=== PATIENT | male | born 1960 | race Caucasian/White ===

== ENCOUNTER 2019-02-19 10:43 | Observation (INO) | payer SELFPAY ==
[~2019-02-19] VITALS: Ht 165.1 cm; Wt 94.1 kg
[2019-02-19] MEDS ORDERED: HYDR12CA PO ×2 (11:16→23:19)
[2019-02-19 12:19] LABS: BASO % 0.5 % (0.0-1.0); EOS % 0.7 % (0.0-3.0); HEMATOCRIT 50.4 % (42.0-52.0); HEMOGLOBIN 17.7 g/dl (13.5-17.5); LYMPH # 1.7 10^3/uL (1.5-4.5); LYMPH % 27.6 % (24.0-44.0); MEAN CORPUSCULAR HEMOGLOBIN 30.9 pg (27.0-33.0); MEAN CORPUSCULAR HGB CONC 35.1 g/dl (32.0-36.5); MONO # 1.2 10^3/uL (0.0-0.8); MONO % 20.2 % (0.0-5.0); NEUTROPHILS # 3.1 10^3/uL (1.8-7.7); NEUTROPHILS % 50.8 % (36.0-66.0); PLATELET COUNT, AUTOMATED 126 10^3/uL (150-450); RED BLOOD COUNT 5.73 10^6/uL (4.30-6.10); WHITE BLOOD COUNT 6.1 10^3/uL (4.0-10.0)
[2019-02-19 12:21] LABS: INR 1.06; PROTHROMBIN TIME 13.5 SECONDS (11.8-14.0)
[2019-02-19 12:22] LABS: PARTIAL THROMBOPLASTIN TIME 32.4 SECONDS (25.0-38.4)
[2019-02-19 12:37] LABS: BLOOD UREA NITROGEN 15 MG/DL (7-18); CALCIUM LEVEL 9.3 MG/DL (8.8-10.2); CARBON DIOXIDE LEVEL 31 MEQ/L (21-32); CHLORIDE LEVEL 104 MEQ/L (98-107); CK-MB VALUE MASS 1.1 NG/ML (<3.6); CPK CREATINE PHOSPHOKINASE 127 U/L (39-308); CREATININE FOR GFR 1.16 MG/DL (0.70-1.30); GLOMERULAR FILTRATION RATE > 60.0 (>49); GLUCOSE, FASTING 108 MG/DL (70-100); MB/CK RELATIVE INDEX 0.87 (< OR =4); POTASSIUM SERUM 3.7 MEQ/L (3.5-5.1); SODIUM LEVEL 139 MEQ/L (136-145); TROPONIN I < 0.02 NG/ML (< 0.10)
--- NOTE | 2019-02-19 13:42 | REP ---
AXIAL CT HEAD WITHOUT CONTRAST: CLINICAL INDICATION: Headache. COMPARISON: None FINDINGS: There is a dense left MCA sign. Note is made vascular calcification of the cavernous carotid arteries. Villalba-white matter differentiation is maintained. There is no acute intracranial hemorrhage, midline shift or mass effect. The basal cisterns are patent. There is slight asymmetry of the temporal horns, slightly smaller on the left of uncertain significance. There is no hydrocephalus. The orbits are intact. The visualized paranasal sinuses and mastoid air cells are clear. IMPRESSION: Dense left MCA sign. If there is clinical concern for stroke, recommend MRI. Findings reported to Dr. Catherine in the ED by Dr. Serrano at 11:51 a.m. on 02/19/2019. Plan is for MRI. Electronically Signed by Jael Serrano MD 02/19/2019 05:53 P
--- NOTE | 2019-02-19 13:58 | REP ---
REASON: Stroke-like symptoms. FINDINGS: The technique utilized in obtaining the radiograph has magnified the cardiac silhouette and accentuated the interstitial markings. The superior mediastinal structures are midline. The cardiac silhouette is unremarkable in size, shape, and position. The diaphragmatic surfaces of the lungs are regular, and the costophrenic angles are clear. The pulmonary barrientos are clear. The imaged osseous structures are intact. IMPRESSION: There is no acute cardiopulmonary disease. Electronically Signed by David Harley DO 02/19/2019 03:45 P
--- NOTE | 2019-02-19 21:02 | REPVR ---
EXAM: MR Head Without Contrast EXAM DATE/TIME: 02/19/2019 8:10 PM CLINICAL HISTORY: 58 years old, male; Altered mental status/memory loss and visual disturbance; Patient HX: H/a blurry vision speach issues, unbalanced gait memory loss; Additional info: Vision disturbance vertigo R/O CVA TECHNIQUE: Imaging protocol: MR of the head without contrast. COMPARISON: CT Head without contrast 02/19/2019 11:16 AM FINDINGS: Brain: No acute infarct identified on the diffusion weighted imaging. No parenchymal hemorrhage. No evidence of brain parenchymal edema or intracranial mass effect. No significant white matter disease for the patient's age; trace signal change on the T2-weighted imaging in keeping with minimal chronic small vessel ischemic change. 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 Ventricles: Normal. No ventriculomegaly. Bones/joints: Unremarkable. Soft tissues: Normal. Sinuses: Trace sinus mucosal thickening. Mastoid air cells: Trace right mastoid fluid. Orbits: Unremarkable. IMPRESSION: No evidence of acute infarct. Electronically signed by: Madhavi Willard On 02/19/2019 21:02:00 PM
--- NOTE | 2019-02-19 21:07 | REPVR ---
EXAM: MR Angiogram Head Without Contrast, Arteries EXAM DATE/TIME: 02/19/2019 8:10 PM CLINICAL HISTORY: 58 years old, male; Cognitive deficit and headache and visual disturbance; Type not specified; Transient visual loss; Patient HX: H/a blurry vision speech issues, unbalanced gait memory loss; Additional info: Vision disturbance vertigo R/O CVA TECHNIQUE: Imaging protocol: MR angiogram head without contrast. Exam focused on the arteries. 3D rendering: MIP reconstructed images were created and reviewed. COMPARISON: CT Head without contrast 02/19/2019 11:16 AM MRI-Brain without Contrast 02/19/2019 7:31:33 PM FINDINGS: Right internal carotid artery: Unremarkable. Intracranial segment is patent with no significant stenosis. No aneurysm. Right anterior cerebral artery: Unremarkable. No occlusion or significant stenosis. No aneurysm. Right middle cerebral artery: Unremarkable. No occlusion or significant stenosis. No aneurysm. Right posterior cerebral artery: Unremarkable. No occlusion or significant stenosis. No aneurysm. Right vertebral artery: Unremarkable. No occlusion or significant stenosis. No aneurysm. Left internal carotid artery: Unremarkable. Intracranial segment is patent with no significant stenosis. No aneurysm. Left anterior cerebral artery: Unremarkable. No occlusion or significant stenosis. No aneurysm. Left middle cerebral artery: Unremarkable. No occlusion or significant stenosis. No aneurysm. Left posterior cerebral artery: Unremarkable. No occlusion or significant stenosis. No aneurysm. Left vertebral artery: Unremarkable. No occlusion or significant stenosis. No aneurysm. Basilar artery: Unremarkable. No occlusion or significant stenosis. No aneurysm. IMPRESSION: No major proximal vessel branch occlusion seen. Specifically, no evidence of left MCA occlusion. Electronically signed by: Madhavi Willard On 02/19/2019 21:07:01 PM
[2019-02-19] MEDS ORDERED: ISOVUE-370 76% 100ML VIAL (Q9967) As Ordered ONE (21:23)
--- NOTE | 2019-02-19 22:22 | REPVR ---
EXAM: CT Angiography Chest With Contrast EXAM DATE/TIME: 02/19/2019 9:36 PM CLINICAL HISTORY: 58 years old, male; Other: Syncope; Additional info: Syncope, ? dissection TECHNIQUE: Imaging protocol: Axial computed tomographic angiography images of the chest with intravenous contrast using CT angiography protocol. Coronal and sagittal reformatted images were created and reviewed. 3D rendering: MIP reconstructed images were created and reviewed. Radiation optimization: All CT scans at this facility use at least one of these dose optimization techniques: automated exposure control; mA and/or kV adjustment per patient size (includes targeted exams where dose is matched to clinical indication); or iterative reconstruction. Contrast material: ISOVUE 370;Contrast volume: 100 ml;Contrast route: IV; COMPARISON: CR PORTABLE CHEST X-RAY 02/19/2019 12:18 PM FINDINGS: Pulmonary arteries: There is opacification of the pulmonary arteries with no evidence of pulmonary embolus. Aorta: There is opacification of the thoracic aorta which appears intact. Lungs: Clear lungs. Pleural space: There is no evidence of pneumothorax. There is no evidence of pleural effusion. Heart: The heart is top normal in size. There is no pericardial effusion. Lymph nodes: Unremarkable. No enlarged lymph nodes. Bones/joints: Unremarkable. No acute fracture. Soft tissues: 1.2 CM low density nodule right lobe of the thyroid. 1.6 CM low density nodule left lobe of the thyroid. Recommend correlation with thyroid ultrasound. IMPRESSION: Is opacification of the thoracic aorta which appears intact. Right and left thyroid nodule noted and recommend correlation with thyroid ultrasound. Electronically signed by: Bill Lyon On 02/19/2019 22:21:53 PM
[2019-02-19] MEDS: DILUENT IV SCH ×4 (22:27→22:47)
[2019-02-19] MEDS: ESMOLOL HCL IV SCH ×4 (22:27→22:47)
--- NOTE | 2019-02-19 23:08 | REPVR ---
EXAM: CT Abdomen and Pelvis With Contrast EXAM DATE/TIME: 02/19/2019 9:36 PM CLINICAL HISTORY: 58 years old, male; Other: Syncope; Additional info: Syncope, ? dissection TECHNIQUE: Imaging protocol: Axial computed tomography images of the abdomen and pelvis with intravenous contrast. Coronal and sagittal reformatted images were created and reviewed. 3D rendering: MIP reconstructed images were created and reviewed. Radiation optimization: All CT scans at this facility use at least one of these dose optimization techniques: automated exposure control; mA and/or kV adjustment per patient size (includes targeted exams where dose is matched to clinical indication); or iterative reconstruction. Contrast material: ISOVUE 370;Contrast volume: 100 ml;Contrast route: IV; COMPARISON: No relevant prior studies available. FINDINGS: Lungs: Clear lung bases. Liver: There is moderate fatty infiltration of the liver. Gallbladder and bile ducts: Normal appearing gallbladder. Pancreas: Normal pancreas. Spleen: Normal spleen. Adrenals: Normal adrenal glands. Kidneys and ureters: There is opacification of both kidneys. There is a small cyst lower pole left kidney. Stomach and bowel: Normal appearing small bowel. Appendix: No evidence of appendicitis. Intraperitoneal space: There is no evidence of pneumoperitoneum. Vasculature: There is irregular atherosclerotic plaque formation causing narrowing at the origin of the celiac artery. There is opacification of the SMA. There is atherosclerotic plaque at the origin of the left renal artery causing narrowing. There is opacification of the aorta with no evidence of dissection and no evidence of aneurysm. Lymph nodes: There is no evidence of lymphadenopathy. Bladder: Normal urinary bladder. Reproductive: Unremarkable as visualized. Bones/joints: There is prominent anterior osteophyte formation of the lower thoracic and lumbar spine. There is a large posterior disc/ osteophyte complex L2-L3, L4-L5 causing significant impression on the thecal sac. Bilateral neural foramina narrowing at several levels lower lumbar spine. Prominent anterior osteophyte formation of the lumbar spine. Soft tissues: Unremarkable. IMPRESSION: 1. Severe fatty infiltration of the liver. 2. Opacification of the aorta with no evidence of dissection and no evidence of aneurysm. 3. Atherosclerotic change with narrowing of the celiac artery origin and left renal artery origin. 4. 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 COMMENT: Consistent with the [employer]'s Incidental Findings Committee Report (J Am Sadie Radiol 2010): Unless the patient's specific circumstances suggest otherwise, any liver lesion 0.5 cm or less, any cystic kidney lesion less than 1.0 cm, and/or any adrenal lesion 1.0 cm or less not otherwise characterized in this report as possessing suspicious or indeterminate imaging features is/are highly likely to be benign and do not require follow-up imaging or biopsy. Electronically signed by: Bill Lyon On 02/19/2019 23:08:08 PM
[2019-02-19] MEDS ORDERED: CO Q100C PO (23:38)
[2019-02-19] MEDS ORDERED: B COTAB3 PO (23:38)
[2019-02-19] MEDS ORDERED: BAYE325T12 PO (23:38)
--- NOTE | 2019-02-19 23:54 | HPEPDOC ---
[facility] Medical History & Physical Date of Admission Feb 19, 2019 Date of Service: Feb 19, 2019 Attending Physician: FRITZ ZAIDI MD History and Physical Time of service 11:12 PM CHIEF COMPLAINT: Not feeling well HISTORY OF PRESENT ILLNESS: Mr. Collins is a 58-year-old male who presents with complaints of not feeling well for a few days. Today he came in because he developed dull, diffuse headache and dizziness. Associated symptoms include dyspnea, dizziness yesterday evening, feeling tired and weak, and left lateral abdominal pain. He denies having chest pain, denies having a fall, and denies dropping any objects. His baseline he has a speech impediment. Per discussion with the ED attending , Dr. Orantes, the patient's blood pressure, suddenly dropped from 170/100 to 104/40 with a period where he was staring and into space and responsive, followed by vomiting. CTA showed a small lesion in the aorta, he called Dr. Aranda, who thought that this may be a small dissection due to the uncontrolled blood pressure and recommended esmolol drip and will see the patient in the morning REVIEW OF SYSTEMS: Point review of systems negative except as listed in HPI PAST MEDICAL / SURGICAL HISTORY: 1. Chronic Hypertension. 2. Speech impediment 3. Status post left knee surgery 4 Denies personal history of CVA, diabetes, or [place]. SOCIAL HISTORY: Juan Luis FAMILY HISTORY: Hypertension Diabetes Coronary artery disease ALLERGIES: Please see below. HOME MEDICATIONS: Please see below. PHYSICAL EXAMINATION: VITAL SIGNS: See below GENERAL APPEARANCE: Obese, well-developed, slightly anxious HEENT: Normocephalic, atraumatic, mucous members moist and pink CARDIOVASCULAR: Regular rate and rhythm, no murmurs, rubs or gallops, radial pulses are intact, external is warm and well perfused, there is no lower extremity edema LUNGS: Clear to auscultation bilaterally on room air ABDOMEN: Hypoactive bowel sounds, abdomen soft and nontender on palpation MUSCULOSKELETAL: Range of motion is intact in all 4 extremities NEUROLOGICAL: Numerous 2-12 intact, the patient has a speech impediment, strength is 5 out of 5 in all extremities PSYCHIATRIC: Alert and oriented to person, place and time, able to understand and follow commands LABORATORY DATA: CBC is unremarkable except for platelet count 126 Chemistries are remarkable for a glucose of 108 Lyme disease serologies pending IMAGING: Chest x-ray was unremarkable CT of the head showed & at the left MCA with recommendations for MRI MRA of the head without contrast that shows no major proximal vessel branch occlusion and no evidence of left MCA occlusion CTA of the chest showed opacification of the thoracic aorta which appears intact, along with a right and left thyroid nodule. CT of abdomen and pelvis showed severe fatty liver, no evidence of dissection or aneurysm, arthrosclerotic changes within the celiac artery and left renal artery, and a large posterior disc osteophyte at L2-L3, causing severe compression on the thecal sac MICROBIOLOGY: Please see below. ASSESSMENT: Mr. Collins is a 58 year-old male with a past medical history of hypertension who will be admitted for management of hypertensive urgency. . PLAN: 1.HTN Urgency/ emergency Suspected aortic dissection was ruled out with addendum Plan: admit to ICU / Telemetry /control blood pressure with esmolol / will let know the updated CT findings 2. Syncope Cause TBD First episode of syncope occurred with his blood pressure, suddenly dropping from 170/100 to 104/40 and the second episode occurred shortly after his HR decreased to the 20s followed by a pause. Troponin, CT of the head were unrevealing Plan: Frequent Neurochecks / atropine PRN for bradycardia / f/u Echo & Carotid US / Cardiology consult 3. L2-L3 osteophyte with compression on the thecal sac. Per d/w neurogenic shock is unlikely the cause of the syncopal episodes Plan: Orthopedic Surgery Consult / and MRI of the lumbar spine 4. Bilateral thyroid nodules. Plan: Patient can follow-up with PCP for ultrasound on an outpatient basis 4. Thrombocytopenia Likely secondary to reduce thromboprotein production due to fatty liver. 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 Disposition pending clinical course Vital Signs Vital Signs Date Time Temp Pulse Resp B/P (MAP) Pulse Ox O2 Delivery O2 Flow Rate FiO2 02/19/19 22:55 140/94 (109) 02/19/19 22:53 80 95 02/19/19 20:17 98.6 02/19/19 20:15 18 Room Air Laboratory Data Labs 24H Laboratory Tests 2 02/19/19 11:32: Immature Granulocyte % (Auto) 0.2, White Blood Count 6.1, Red Blood Count 5.73, Hemoglobin 17.7H, Hematocrit 50.4, Mean Corpuscular Volume 88.0, Mean Corpuscular Hemoglobin 30.9, Mean Corpuscular Hemoglobin Concent 35.1, Red Cell Distribution Width 13.3, Platelet Count 126L, Neutrophils (%) (Auto) 50.8, Lymphocytes (%) (Auto) 27.6, Monocytes (%) (Auto) 20.2H, Eosinophils (%) (Auto) 0.7, Basophils (%) (Auto) 0.5, Neutrophils # (Auto) 3.1, Lymphocytes # (Auto) 1.7, Monocytes # (Auto) 1.2H, Eosinophils # (Auto) 0.0, Basophils # (Auto) 0.0, Nucleated Red Blood Cells % (auto) 0.0, Prothrombin Time 13.5, Prothromb Time International Ratio 1.06, Activated Partial Thromboplast Time 32.4, Anion Gap 4L, Glomerular Filtration Rate > 60.0, Blood Urea Nitrogen 15, Creatinine 1.16, Sodium Level 139, Potassium Level 3.7, Chloride Level 104, Carbon Dioxide Level 31, Calcium Level 9.3, Total Creatine Kinase 127, Creatine Kinase MB 1.1, Creatine Kinase MB Relative Index 0.87, Troponin I < 0.02 02/19/19 12:00: Bedside Glucose ([facility] Panel) 111 CBC/BMP Laboratory Tests 02/19/19 11:32 Red Blood Count 5.73, Mean Corpuscular Volume 88.0, Mean Corpuscular Hemoglobin 30.9, Mean Corpuscular Hemoglobin Concent 35.1, Red Cell Distribution Width 13.3, Neutrophils (%) (Auto) 50.8, Lymphocytes (%) (Auto) 27.6, Monocytes (%) (Auto) 20.2 H, Eosinophils (%) (Auto) 0.7, Basophils (%) (Auto) 0.5, Neutrophils # (Auto) 3.1, Lymphocytes # (Auto) 1.7, Monocytes # (Auto) 1.2 H, Eosinophils # (Auto) 0.0, Basophils # (Auto) 0.0, Calcium Level 9.3, Total Creatine Kinase 127 Home Medications Scheduled Aspirin (Aspirin) 325 Mg Tablet, 325 MG PO DAILY Lisinopril (Lisinopril) 2.5 Mg Tablet, 2.5 MG PO DAILY Ubidecarenone (Co Q-10) 100 Mg Capsule, 100 MG PO DAILY Vitamin B Complex (Vitamin B Complex) 1 Each Tablet, 1 TAB PO DAILY Allergies Coded Allergies: No Known Drug Allergies (Verified Allergy, Unknown, 02/19/19) A-FIB/CHADSVASC A-FIB History Current/History of A-Fib/PAF?: No Current PO Anticoag Therapy: No FRITZ ZAIDI MD Feb 19, 2019 23:54
[2019-02-20] VITALS (27 sets, daily range): BP systolic 96–152; BP diastolic 62–97
[2019-02-20] MEDS ORDERED: ESMOLOL HCL IV SCH (00:45)
[2019-02-20] MEDS ORDERED: DILUENT IV SCH (00:45)
[2019-02-20] MEDS ORDERED: ACETAMINOPHEN 650MG ER TAB (TYLENOL ARTHRITIS) PO PRN (00:45)
[2019-02-20] MEDS ORDERED: NS 0.45% 1,000 ML IV SCH (01:45)
[2019-02-20] MEDS ORDERED: ATROPINE SULF 1MG/10ML SYRINGE (J0461) IV PRN (01:45)
[2019-02-20 02:43] LABS: MAGNESIUM LEVEL 2.4 MG/DL (1.8-2.4); TROPONIN I < 0.02 NG/ML (< 0.10)
--- NOTE | 2019-02-20 06:08 | ECGEPIP ---
[facility] - ED Test Date: 2019-02-19 Pat Name: MARIAM MEJIA Department: Room: - Gender: Male Replenisher: ANDRE : 1960 Requested By: Sharon Purdy Order Number: [id number] Reading MD: Jozef Kinney Measurements Intervals [place] Rate: 70 P: 19 TX: 150 QRS: 7 QRSD: 80 T: 2 QT: 334 QTc: 362 Interpretive Statements SINUS RHYTHM POSSIBLE LEFT ATRIAL ENLARGEMENT NONSPECIFIC T-WAVE ABNORMALITY NO PRIORS FOR COMPARISON Electronically Signed on 02-20-2019 6:08:18 EDT by Jozef Kinney
[2019-02-20] MEDS ORDERED: NS 1,000 ML IV SCH (06:20)
[2019-02-20 08:24] LABS: HEMATOCRIT 50.3 % (42.0-52.0); HEMOGLOBIN 17.2 g/dl (13.5-17.5); MEAN CORPUSCULAR HEMOGLOBIN 30.2 pg (27.0-33.0); MEAN CORPUSCULAR HGB CONC 34.2 g/dl (32.0-36.5); MEAN CORPUSCULAR VOLUME 88.2 fl (80.0-96.0); PLATELET COUNT, AUTOMATED 131 10^3/uL (150-450); WHITE BLOOD COUNT 5.5 10^3/uL (4.0-10.0)
--- NOTE | 2019-02-20 08:39 | REP ---
Duplex carotid sonography: History: Syncope. No comparison imaging. Findings: Antegrade flow was observed in both vertebral arteries. Right carotid: The right common carotid artery is unremarkable. There is mild soft plaquing in the proximal ICA on the right side. Color flow and spectral Doppler interrogation are unremarkable on the right. Velocity chart right carotid: Right CCA PSV 96 cm/s Right ICA PSV 59 EDV 17 Right ECA PSV 88 Right ICA/CCA ratio normal 0.6. Impression: Left than 50% narrowing in the right proximal ICA by Doppler velocity criteria. Left carotid: Left common carotid artery shows mild diffuse intimal thickening. There is mild soft plaquing in the proximal ICA. Color flow and spectral Doppler interrogation are unremarkable. There is no evidence of high-grade stenosis. Velocity chart left carotid: Left CCA PSV 84 cm/s Left ICA PSV 54 EDV 22 Left ECA PSV 81 Left ICA/CCA ratio normal 0.6. Impression: Less than 50% narrowing in the left ICA by Doppler velocity criteria. Electronically Signed by Pankaj Song MD 02/20/2019 08:55 A
[2019-02-20 08:59] LABS: BLOOD UREA NITROGEN 14 MG/DL (7-18); CALCIUM LEVEL 8.9 MG/DL (8.8-10.2); CARBON DIOXIDE LEVEL 29 MEQ/L (21-32); CHLORIDE LEVEL 104 MEQ/L (98-107); CREATININE FOR GFR 1.04 MG/DL (0.70-1.30); GLOMERULAR FILTRATION RATE > 60.0 (>49); GLUCOSE, FASTING 106 MG/DL (70-100); POTASSIUM SERUM 3.7 MEQ/L (3.5-5.1); SODIUM LEVEL 139 MEQ/L (136-145); TROPONIN I < 0.02 NG/ML (< 0.10)
[2019-02-20] MEDS ORDERED: hydroCHLOROthiazide 12.5 MG CAPSULE PO SCH (09:00)
[2019-02-20] MEDS ORDERED: ASPIRIN 325 MG TAB PO SCH (09:00)
--- NOTE | 2019-02-20 09:00 | IPNPDOC ---
Text Note Date of Service The patient was seen on 02/20/19. NOTE S: patient with stutter and /son present during exam to help interpret what patient saying. Patient has had intermittent syncopal episodes since young age. He had an episode prior to admission while eating and caused vomiting. Unknown duration. He states he starts sweating, feels stomach pain before passing out. He denies chest pain but states sometimes has left abdomen pain prior to syncope episodes. He had carotid US done this AM. He was admitted with syncope and hypertensive urgency, placed on esmolol drip. Drip discontinued and shortly after, patient had 7 second sympomatic pause (diaphoretic but no syncope). As for his back, he states he sees a chiropractor, denies neuropathyor parathesia and is declining MRI at this time. O: Vitals as below General: pleasant, NAD, AAOx3 HRRR no murmur (78 bpm) LCTA no W/R/R Ext: no ankle edema Abdomen soft NT ND NABS A/P: 1.HTN Urgency/ emergency Suspected aortic dissection was ruled out - Dr Aranda states this is aortic calcification, no dissection, ulceration or pseudoaneursym. Await cardiology input 2. Syncope associated with bradycardia and rapid drop in blood pressure First episode of syncope occurred with his blood pressure, suddenly dropping from 170/100 to 104/40 and the second episode occurred shortly after his HR decreased to the 20s followed by a pause. ECHO pending; carotid US this AM pending. Serial troponin 3. L2-L3 osteophyte with compression on the thecal sac. Await Orthopedic Surgery Consult- patient refusing MRI and further workup can be done as outpatient. 4. Bilateral thyroid nodules. Patient can follow-up with PCP for ultrasound on an outpatient basis 5. Thrombocytopenia - monitor. Current Medications Medications (Trade) Dose Ordered Sig/Freddie Route PRN Reason Start Time Stop Time Status Last Admin Dose Admin Acetaminophen (Tylenol Arthritis Er) 1,300 mg Q12HP PRN PO PAIN 02/20/19 00:45 Aspirin (Aspirin) 325 mg DAILY PO 02/20/19 09:00 02/20/19 09:00 DC Atropine Sulfate (Atropine Sulfate) 0.5 mg Q1HP PRN IV bradycardia 02/20/19 01:45 Esmolol HCl 2000 mg/IV Miscellaneous Supplies 100 ml @ 0 mls/hr Q0M IV 02/19/19 21:45 02/20/19 00:44 DC 02/19/19 22:47 Esmolol HCl 2000 mg/IV Miscellaneous Supplies 100 ml @ 0 mls/hr Q0M IV 02/20/19 00:45 Home Med (Med Rec Complete!) ASDIRECTED XX 02/19/19 23:45 02/19/19 23:45 DC Hydrochlorothiazide (Hydrodiuril) 12.5 mg DAILY PO 02/20/19 09:00 Sodium Chloride 1,000 ml @ 60 mls/hr [id number] IV 02/20/19 06:20 02/20/19 06:40 Sodium Chloride 1,000 ml @ 75 mls/hr [id number] IV 02/20/19 01:45 02/20/19 06:23 DC 02/20/19 01:59 VS,Fishbone, I+O VS, Fishbone, I+O Laboratory Tests 02/19/19 11:32 Red Blood Count 5.73, Mean Corpuscular Volume 88.0, Mean Corpuscular Hemoglobin 30.9, Mean Corpuscular Hemoglobin Concent 35.1, Red Cell Distribution Width 13.3, Neutrophils (%) (Auto) 50.8, Lymphocytes (%) (Auto) 27.6, Monocytes (%) (Auto) 20.2 H, Eosinophils (%) (Auto) 0.7, Basophils (%) (Auto) 0.5, Neutrophils # (Auto) 3.1, Lymphocytes # (Auto) 1.7, Monocytes # (Auto) 1.2 H, Eosinophils # (Auto) 0.0, Basophils # (Auto) 0.0, Calcium Level 9.3, Total Creatine Kinase 127 Vital Signs Date Time Temp Pulse Resp B/P (MAP) Pulse Ox O2 Delivery O2 Flow Rate FiO2 02/20/19 04:00 2.0 02/20/19 04:00 98.6 85 18 131/85 (100) 96 02/19/19 20:15 Room Air I&O- Last 24 Hours up to 6 AM 02/20/19 06:00 Intake Total 325 ml Output Total 475 ml Balance -150 ml BITA MARINO DO Feb 20, 2019 07:57
[2019-02-20] MEDS: LISINOPRIL *2.5 MG* TAB PO SCH (09:41)
--- NOTE | 2019-02-20 11:00 | CR.PDOC ---
General Date of Consultation: Feb 20, [address] Aranda. HPI: 58year oldM who came to ED for evaluation of HOYT and diszziness. In the ED the patient's blood pressure, suddenly dropped from 170/100 to 104/40 with a p eriod where he was staring and into space and responsive, followed by vomiting. CTA showed a small lesion in the aorta and it was felt this could be a small dissection due to the uncontrolled blood pressure. Vascular Surgery was consulted. At approximately 01:19 hrs this AM the pt was noted to have a 6.8 sec pause on TM with brief LOC. Carotid US, TTE, cardiology Clt requested. Denies any fevers, chills, Chest Pain, Shortness of breath, cough, N/V/D or changes in bowel or bladder habits. PAST MEDICAL / SURGICAL HISTORY: Hypertension. Speech impairment Status post left knee surgery SOCIAL HISTORY: Zoroastrianism denies tobacco use denies alcohol use FAMILY HISTORY: Hypertension Diabetes Coronary artery disease ROS: As noted in HPI, otherwise 11pt ROS of systems reviewed and unremarkable. PE: GEN: 58yoM, Alert and oriented x 3. HEENT: Normocephalic, atraumatic. Moist mucous membranes. CHEST: Regular rate and rhythm, +S1, +S2 LUNGS: Clear to auscultation bilaterally. ABD: Round, soft, non-tender, non-distended. EXT: No lower extremity edema appreciated. SKIN: No rashes. NEURO: No focal deficits appreciated. CTA chest Findings were discussed with EVY DAVIS at 02/19/2019 10:50 PM EDT. There is no evidence of dissection of the thoracic aorta. In the subcarinal location there is a calcified lymph node possibly from previous TB exposure. In addition there are several calcified lymph nodes along the left side of the aorta and consistent with calcium density. This does not represent extravasation of contrast as it is much higher density than contrast consistent with bone density. There is a streak artifact at the most inferior calcified lymph node. There are also prominent anterior osteophytes/ bone density. Electronically signed by: Bill Lyon On 02/19/2019 22:52:[address] A/P IMPRESSION: 1. Severe fatty infiltration of the liver. 2. Opacification of the aorta with no evidence of dissection and no evidence of aneurysm. 3. Atherosclerotic change with narrowing of the celiac artery origin and left renal artery origin. 4. 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 carotid US Impression: Less than 50% narrowing in the left ICA by Doppler velocity criteria. Electronically Signed by Pankaj Song MD 02/20/2019 08:55 A A&P: 1. Dizziness with episode of hypotension and concern for aortic dissection. The pt is reviewed and examined as per Dr Aranda. The pt's radiology films reviewed as per Dr Aranda. There is no noted dissection, aneurysm, pseudoaneurysm, or ulceration noted on images as reviewed by Dr Aranda. Re consult vascular as needed. Vital Signs/I&O Vital Signs Date Time Temp Pulse Resp B/P (MAP) Pulse Ox O2 Delivery O2 Flow Rate FiO2 02/20/19 09:55 89 152/97 (115) 02/20/19 08:00 2.0 02/20/19 08:00 98.7 20 98 02/19/19 20:15 Room Air I&O- Last 24 Hours up to 6 AM 02/20/19 05:59 Intake Total 0 ml Output Total 475 ml Balance -475 ml Laboratory Data Labs 24H Laboratory Tests 2 02/19/19 11:32: Immature Granulocyte % (Auto) 0.2, White Blood Count 6.1, Red Blood Count 5.73, Hemoglobin 17.7H, Hematocrit 50.4, Mean Corpuscular Volume 88.0, Mean Corpuscular Hemoglobin 30.9, Mean Corpuscular Hemoglobin Concent 35.1, Red Cell Distribution Width 13.3, Platelet Count 126L, Neutrophils (%) (Auto) 50.8, Lymphocytes (%) (Auto) 27.6, Monocytes (%) (Auto) 20.2H, Eosinophils (%) (Auto) 0.7, Basophils (%) (Auto) 0.5, Neutrophils # (Auto) 3.1, Lymphocytes # (Auto) 1.7, Monocytes # (Auto) 1.2H, Eosinophils # (Auto) 0.0, Basophils # (Auto) 0.0, Nucleated Red Blood Cells % (auto) 0.0, Prothrombin Time 13.5, Prothromb Time International Ratio 1.06, Activated Partial Thromboplast Time 32.4, Anion Gap 4L, Glomerular Filtration Rate > 60.0, Blood Urea Nitrogen 15, Creatinine 1.16, Sodium Level 139, Potassium Level 3.7, Chloride Level 104, Carbon Dioxide Level 31, Calcium Level 9.3, Total Creatine Kinase 127, Creatine Kinase MB 1.1, Creatine Kinase MB Relative Index 0.87, Troponin I < 0.02 02/19/19 12:00: Bedside Glucose (Misc Panel) 111 02/20/19 01:34: Bedside Glucose (Misc Panel) 142H 02/20/19 02:05: Troponin I < 0.02, Magnesium Level 2.4, Thyroid Stimulating Hormone (TSH) 3.020 02/20/19 08:10: Nucleated Red Blood Cells % (auto) 0.0, Anion Gap 6L, Glomerular Filtration Rate > 60.0, Blood Urea Nitrogen 14, Creatinine 1.04, Sodium Level 139, Potassium Level 3.7, Chloride Level 104, Carbon Dioxide Level 29, Calcium Level 8.9, Troponin I < 0.02 CBC/BMP Laboratory Tests 02/19/19 11:32 Red Blood Count 5.73, Mean Corpuscular Volume 88.0, Mean Corpuscular Hemoglobin 30.9, Mean Corpuscular Hemoglobin Concent 35.1, Red Cell Distribution Width 13.3, Neutrophils (%) (Auto) 50.8, Lymphocytes (%) (Auto) 27.6, Monocytes (%) (Auto) 20.2 H, Eosinophils (%) (Auto) 0.7, Basophils (%) (Auto) 0.5, Neutrophils # (Auto) 3.1, Lymphocytes # (Auto) 1.7, Monocytes # (Auto) 1.2 H, Eosinophils # (Auto) 0.0, Basophils # (Auto) 0.0, Calcium Level 9.3, Total Creatine Kinase 127 02/20/19 08:10 Red Blood Count 5.70, Mean Corpuscular Volume 88.2, Mean Corpuscular Hemoglobin 30.2, Mean Corpuscular Hemoglobin Concent 34.2, Red Cell Distribution Width 13.2, Calcium Level 8.9 Allergies Coded Allergies: No Known Drug Allergies (Verified Allergy, Unknown, 02/19/19) Home Medications Scheduled Aspirin (Aspirin) 325 Mg Tablet, 325 MG PO DAILY, (Reported) Hydrochlorothiazide (Hydrochlorothiazide) 12.5 Mg Capsule, 12.5 MG PO DAILY, (Reported) Ubidecarenone (Co Q-10) 100 Mg Capsule, 100 MG PO DAILY, (Reported) Vitamin B Complex (Vitamin B Complex) 1 Each Tablet, 1 TAB PO DAILY, (Reported) Aarti Alfredo Feb 20, 2019 11:00
[2019-02-20 14:17] LABS: Lyme Disease IgG/IgM Antibodie <0.91 ISR (0.00-0.90); Lyme Disease IgM Ab Quantitati <0.80 index (0.00-0.79)
--- NOTE | 2019-02-20 14:51 | CR ---
DATE OF CONSULTATION: 02/20/2019 CHIEF COMPLAINT: Syncope. HISTORY OF PRESENT ILLNESS: This is a pleasant 58-year-old male who was called for consultation due to overnight episode of syncope. He was initially admitted due to a few days of not feeling well. Overnight, around 1:00 a.m., he had a bradycardic episode, decreased blood pressure. During the workup for this episode, they noted an incidental finding of lumbar stenosis with possible compression of the cauda equina. The hospitalist called orthopedics for evaluation and asking if this could cause neurogenic shock. When I asked the patient if he has low back pain, he says that his mild and intermittent low back pain is not currently present. He states that he is able to ambulate without any issues. He denies any particular pain, numbness or tingling. Denies any saddle anesthesia or bowel/bladder incontinence. He denies any recent trauma to his back. REVIEW OF SYSTEMS: A complete 10-system review with pertinent positives and negatives as per history of present illness. PAST MEDICAL HISTORY: 1. Chronic hypertension. 2. Speech impediment. PAST SURGICAL HISTORY: 1. Status post left knee surgery. SOCIAL HISTORY: He is . FAMILY HISTORY: Hypertension, diabetes, coronary artery disease. MEDICATIONS: - aspirin - hydrochlorothiazide - CoQ10 - B complex vitamins ALLERGIES: No known drug allergies. PHYSICAL EXAMINATION The patient is awake, alert and oriented. Well dressed, appropriate affect. Breathing is unlabored on room air. Bilateral lower extremities with no tenderness to palpation. Full active range of motion of his ankles, knees and hips without any discomfort. Negative clonus bilaterally. Sensation is intact to light touch. L2 to S1 also has intact myotomes, 5/5 strength. Posterior tibial pulses 2+. Feet are warm and well perfused. No sign of any skin stigmata. Skin is intact. LABORATORY DATA/IMAGING: Reviewed in the chart. Unremarkable except for a platelet count of 126 and a glucose of 108. He has Lyme disease pending. IMAGING: CT of the chest and abdomen reviewed and demonstrated severe lumbar stenosis throughout the entire lumbar spine. There is significant arthritic change. No acute fractures or dislocations. ASSESSMENT: This is a pleasant 58-year-old man with lumbar stenosis that is chronic. It is highly unlikely that this is the origin of his syncopal episode and his blood pressure lability. Typically, neurogenic shock in order to occur has to be after a trauma, some sort of acute injury to the spinal cord, also sometimes involving the syndesmotic chain, which is more in the thoracic and cervical spine. Therefore, I think that it is a chronic issue that the patient actually did not have any symptoms of. He is welcome to followup in our office. We did initially try to get a lumbar MRI; however, the patient does not wish to do so and that is entirely reasonable given that he has limited symptoms from this. He is welcome to followup as an outpatient. We have no operative indications at this time and nothing else to offer. He has no restrictions from my standpoint. He can call for an appointment once he is discharged from the hospital. Please call with any questions or concerns.
--- NOTE | 2019-02-20 15:05 | CR ---
DATE OF CONSULTATION: 02/20/2019 REFERRING PHYSICIAN: Dr. Latha Neri REASON FOR CONSULTATION: Syncope with sinus arrest (asystole). HISTORY OF PRESENT ILLNESS: Mr. Johnathan Collins is a pleasant 58-year-old man who was hospitalized yesterday (02/19/2019) with complaints of not feeling well for a few days and headache and dizziness, weakness, abdominal discomfort, and shortness of breath. While in the emergency room he had a sudden drop in his blood pressure from 176 systolic down to 104 systolic and initially there was concern for a small aortic dissection on the chest CTA. The patient was awake at 1:19 a.m. this morning (02/20/2019) when he had a sudden episode of syncope, which was quite brief, with rapid return of sensorium. At that time, he was going along in sinus rhythm and then suddenly had an episode of asystole lasting 6.8 seconds followed by a junctional escaped beat and then returned back to sinus rhythm at a rate similar to what he was at in sinus rhythm just prior to passing out. The patient reports he has had recurrent episodes of passing out with no warning or almost no warning since he was a child and these had become progressively less over the years. He reports that episodes of passing out are rare and often less than once a year. It has been a few years to his recollection since passing out other than this morning. He denies any abdominal pain, nausea, vomiting, or sweating in the moments before passing out this morning. PAST MEDICAL/SURGICAL HISTORY: Systemic hypertension. Speech impediment. Prior left knee surgery. No history of coronary artery disease (CAD), heart attack, stroke, or diabetes. SOCIAL HISTORY: . Of [place] descent. Nonsmoker. No alcohol. FAMILY HISTORY: Systemic hypertension, diabetes, CAD. REVIEW OF SYSTEMS: 10 point review of systems as per HPI above. MEDICATIONS PRIOR TO ADMISSION: - aspirin 325 mg daily - hydrochlorothiazide 12.5 mg daily - coenzyme Q10 100 mg daily - vitamin B one tablet daily CURRENT MEDICATIONS IN THE HOSPITAL: Consist of: - lisinopril 2.5 mg daily - atropine 0.5 mg IV every 1 hour as needed for bradycardia - acetaminophen 1300 mg every 12 hours as needed ALLERGIES: No known adverse drug reactions. PHYSICAL EXAMINATION: Pleasant, obese man who appears his chronologic age who is not in any respiratory or psychologic distress. Height 65 inches, weight 94.1 kg, BMI 34.5. Temperature 98.3, pulse 84 (regular), respiratory rate 18, blood pressure 137/95, oxygen saturation 94% on oxygen 2 liters per minute. No conjunctival pallor, scleral icterus or xanthomas. Only a few remaining teeth were present and they were in poor condition. Oral mucosa was moist and without pallor or stenosis. Jugular venous pulsations were at 3 cm. Trachea midline. No palpable thyroid. No clubbing, nailbed stenosis or splinter hemorrhages. No skin lesions, skin pallor or icterus. Oriented to person, place and time. Mood and affect were normal. Curvature of the spine normal. Gait was not tested as the patient is presently on bedrest. Gross motor strength and tone appeared normal. No abnormal muscle atrophy, fasciculations, or tremors. Respiratory expansion effort was good. No crackles or wheezes. First and second heart sounds were normal. No S3 or S4, murmurs or friction rubs. No palpable apex beat. No parasternal lifts, heaves, thrills, or palpable heart sounds. Carotids were normal in volume and contour and without bruits. No palpable abdominal aorta, but difficult to palpate due to abdominal obesity. No abdominal bruits. Femoral pulses normal. Pedal pulses normal. No peripheral edema. No varicose veins. Abdomen was obese, soft, nontender with normal bowel sounds. No hepatosplenomegaly or organomegaly. Liver span difficult to assess due to abdominal obesity. Stool for occult blood not presently indicated. INVESTIGATIONS: Electrocardiogram 02/17/2019 at 1204 hours shows sinus rhythm, 70 bpm, possible left atrial abnormality, nonspecific Q waves. I have independently visualized the patient's portable AP sitting chest x-ray acquire 02/19/2019 at 12:19 p.m. Difficult to just for cardiomegaly due to the portable AP technique and suboptimal inspiration. No pulmonary vascular distribution. No interstitial or alveolar edema. No pleural effusions. Lung barrientos appear clear. CT angiography of the chest with contrast, addendum report, states there is no evidence of dissection of the thoracic aorta. In the subcarinal location there is a calcified lymph node, possibly from previous TB exposure. In addition, there are several calcified lymph nodes along the left side of the aorta and consistent with calcium density. This does not represent extravasation of contrast, as it has a much higher density than contrast, consistent with bone density. There is a streak artifact at the most inferior calcified lymph node. There are also prominent anterior osteophyte/bone density. CT abdomen and pelvis with contrast 02/19/2019 reported severe fatty infiltration of the liver. Opacification of the aorta and no evidence of dissection and no evidence of aneurysm. Atherosclerotic change with narrowing of the celiac artery origin and left renal artery origin. 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 Laboratory work 02/19/2019 was reviewed: WBC 5.5, hemoglobin 17.2, hematocrit 50.3, platelets 131. Laboratory work 02/19/2019 shows PT/INR of 1.06. Laboratory work 02/20/2019 showed sodium 139, potassium 3.7, chloride 104, CO2 29, BUN 14, creatinine 1.04. Estimated GFR greater than 60. Glucose 106, troponin I less than 0.02, TSH 3.020. ASSESSMENT/RECOMMENDATIONS: 1. Syncope. This patient has a long history of recurrent syncope with next to no warning and no trigger factors since he was a child, which have become rare over the years. He had an episode of syncope while he was on telemetry in the early hours this morning, during which time he went from sinus rhythm at a normal rate to suddenly a sinus arrest lasting 6.8 seconds followed by a junctional escaped beat followed by return to sinus rhythm at the previous heart rate. I would conclude that he has syncope as a result of sick sinus syndrome (sinus arrest). The description does not sound vasovagal and the ECG pattern documented on telemetry does not suggest vasovagal because there was no preceding slowing of the heart rate or ongoing slow heart rate following termination of the sinus arrest episode. The patient is not on any negative chronotropic or dromotropic agents to account for the sinus node dysfunction. Because of sick sinus syndrome with recurrent syncope, this patient meets criteria for implantation of a permanent dual chamber pacemaker. I have shown the patient the pause that was observed when he had syncope early this morning and I explained implantation of a permanent dual chamber pacemaker to prevent recurrences of syncope. Risks of pacemaker implantation were explained to the patient including, but not all inclusive: Infection (1%), pneumothorax (1%), bleeding, poor wound healing, cardiac dysrhythmias, and cardiac perforation with cardiac tamponade (09/999). The patient refused to have a pacemaker. He was concerned about the cost of a pacemaker. I explained to the patient that without a pacemaker he will continue to have episodes of passing out, which can result in bodily injury and also he is at increased risk for sudden cardiac without a pacemaker. I told the patient that if he changes his mind and wishes to have a pacemaker, that he should let his doctors or the nursing staff know. I discussed the situation with the patient refusing to have a pacemaker with Dr. Mimi Cotton. I suggested that perhaps the hospital executive secretary social welfare can help the patient with the financial aspects if this was the main barrier for the patient to accept a permanent pacemaker. I will place an order in the nurses orders for the patient to have a followup at my office. 2. Sick sinus syndrome (asystole, sinus arrest). As per syncope above. 3. Systemic hypertension. The patient's blood pressure is presently under good control with regards to the systolic pressure and the diastolic pressure has been variable between controlled and mildly uncontrolled. In the hospital he is currently on a regimen consisting of lisinopril 2.5 mg daily. I have not made any changes to the patient's lisinopril as it has just been started. If the patient shows up for a followup at my office, I will be happy to assist with management of his systemic hypertension. 4. Obesity. I have suggested that the patient be placed on a DASH diet with 2.5 grams sodium, and as much whole food, plant based diet as possible is what I would advise. Thank you kindly for asking me to participate in the cardiac care of Mr. Johnathan Collins. cc: DO Latha Morris MD
--- NOTE | 2019-02-20 21:27 | ECHO ---
DATE OF PROCEDURE: 02/20/2019 Date of : 1960 REFERRING INDIVIDUAL: Karla MorelAdarsh, Physician Senior Electrical Estimator INDICATION: Abnormal ECG, systemic hypertension. HEIGHT: 65 inches WEIGHT: 94.1 kilograms 2D MEASUREMENTS: Ventricular septum: 1.13 cm Posterior wall: 0.96 cm Left ventricle diastole: 4.9 cm Aortic root: 3.1 cm Left atrium: 2.8 cm Aortic annulus: 2.0 cm Inferior vena cava: 1.6 cm DOPPLER MEASUREMENTS: Aortic valve velocity: 91.1 cm/s LVOT velocity: 62.0 cm/s LVOT VTI: 11.5 cm Mitral E velocity: 29.7 cm/s Mitral A velocity: 48.7 cm/s Mitral deceleration time: 215 ms Trace tricuspid regurgitation. No aortic regurgitation. No mitral regurgitation. No pulmonic regurgitation. Pulmonary artery systolic pressure: 21 mmHg. MITRAL ANNULAR TISSUE DOPPLER: E prime lateral: 4.6 cm/s E prime septal: 5.4 cm/s DESCRIPTION: Rhythm was sinus. This was a moderately technically difficult echocardiogram. Apical views were difficult because the apical window was partially obscured by a defibrillation transthoracic patch. CONCLUSIONS: 1. Normal left ventricle internal dimensions and wall thickness. Normal regional left ventricular (LV) wall motion and wall thickening. Normal LV systolic function. Left ventricular ejection fraction (LVEF) 60% by visual estimate. Grade 1 LV diastolic dysfunction (impaired relaxation filling pattern). 2. Normal right ventricle size and systolic function. 3. Normal size of the atria. 4. Structurally and functionally normal appearing cardiac valves. 5. Tiny pericardial effusion seen over the inferior and inferolateral regions of the left ventricle.
[2019-02-21] VITALS: BP 121/76
[2019-02-21 04:00] VITALS: BP 116/72
[2019-02-21 08:00] VITALS: BP 117/78
[2019-02-21] MEDS ORDERED: LISI-1046 PO (08:29)
[2019-02-21 08:34] VITALS: BP 117/78
[2019-02-21] MEDS: LISINOPRIL *2.5 MG* TAB PO SCH (08:34)
--- NOTE | 2019-02-21 16:02 | ECGEPIP ---
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
--- NOTE | 2019-02-21 17:39 | DS.PDOC ---
Discharge Summary General Date of Admission Feb 19, 2019 at 10:44 Date of Discharge 02/21/19 Attending Physician: BITA MARINO DO Specialist/Consultants Involve: Eladio Cosby Specialist/Consultants Involve Dr Lewis (ortho), Dr Aranda (vascular) Discharge Summary PROCEDURES PERFORMED DURING STAY: NONE ADMITTING DIAGNOSES: bradycardia, syncope, possible aortic dissection, lumbar stenosis DISCHARGE DIAGNOSES: Aortic dissection - ruled out - diagnosis is error Sick sinus syndrome HTN urgency Syncope due to SSS bradycardiac L2-L3 osteophyte with compression on thecal sac and lumbar stenosis THryoid nodules Thrombocytopenia COMPLICATIONS/CHIEF COMPLAINT: Aortic Dissection;Hypertensive Emergency. HISTORY OF PRESENT ILLNESS: Mr. Collins is a 58-year-old male who presents with complaints of not feeling well for a few days. Today he came in because he developed dull, diffuse headache and dizziness. Associated symptoms include dyspnea, dizziness yesterday evening, feeling tired and weak, and left lateral abdominal pain. He denies having chest pain, denies having a fall, and denies dropping any objects. His baseline he has a speech impediment. Per discussion with the ED attending , Dr. Orantes, the patient's blood pressure, suddenly dropped from 170/100 to 104/40 with a period where he was staring and into space and responsive, followed by vomiting. CTA showed a small lesion in the aorta, he called Dr. Aranda, who thought that this may be a small dissection due to the uncontrolled blood pressure and recommended esmolol drip and will see the patient in the morning. See H&P for details. HOSPITAL COURSE: Dr Aranda consulted and no signs of dissection or aneursym of aorta - it appeared to be calcified plaque on CT scan giving false appearance of dissection. His BP was controlled with IV Esmolol but then patient had severe bradycardia and 7 second symptomatic pause. He was taken off IV esmolol and placed on po lisinopril (HCTZ stopped as outpatient ) for BP control. Seen by ortho and recommended outpateint follow up of lumbar stenosis - pateint declined. Patient also refused MRI lumbar spine. He was seen by cardiology - Dr Cosby and diagnosed with sick sinus syndrome - bradycardia inducing sy ncope. Patient declined further evaluation and declined pacemaker. HE was able to verbally demonstrate understanding of risk associated with declining pacemaker. As for thryoid nodule, US done but results pending. THis will need follow up as outpatient. Patient is being discharged in stable but guarded condition. DISCHARGE MEDICATIONS: Please see below. ALLERGIES: Please see below. PHYSICAL EXAMINATION ON DISCHARGE: VITAL SIGNS: Please see below. GENERAL: pleasant NAD AAOX3 with stuttering speech pattern Heart - RRR 70 bpm LCTA LABORATORY DATA: Please see below. PROGNOSIS: guarded ACTIVITY: as tolerated, no climbing ladders or working from heights. patient does not drive DIET: regular DISCHARGE PLAN: d/c home DISCHARGE INSTRUCTIONS: 1. follow up with PCP in 5-7 days for recheck of blood pressure ,thryoid and creatinine 2. stop HCTZ, start low dose lisinopril 3. follow up with Dr Cosby in 4-6 weeks to discuss possible pacemaker 4. follow up with ortho if interested in treating lumbar stenosis ITEMS TO FOLLOWUP ON ON OUTPATIENT: 1. cardiac echo, thyroid US DISCHARGE CONDITION: stable TIME SPENT ON DISCHARGE: 30 minute Vital Signs/I&Os Vital Signs Date Time Temp Pulse Resp B/P (MAP) Pulse Ox O2 Delivery O2 Flow Rate FiO2 02/21/19 08:00 98.3 79 18 117/78 (91) 97 02/20/19 16:00 2.0 02/19/19 20:15 Room Air I&O- Last 24 Hours up to 6 AM 02/21/19 05:59 Intake Total 1675 ml Output Total 1475 ml Balance 200 ml Discharge Medications Scheduled Aspirin (Aspirin) 325 Mg Tablet, 325 MG PO DAILY, (Reported) Lisinopril (Lisinopril) 2.5 Mg Tablet, 2.5 MG PO DAILY Ubidecarenone (Co Q-10) 100 Mg Capsule, 100 MG PO DAILY, (Reported) Vitamin B Complex (Vitamin B Complex) 1 Each Tablet, 1 TAB PO DAILY, (Reported) Allergies Coded Allergies: No Known Drug Allergies (Verified Allergy, Unknown, 02/19/19) BITA MARINO DO Feb 21, 2019 08:38
== END 2019-02-21 09:30 | disposition home or self-care (01) ==
LOC: M ED 10:43 → M ED INP 10:44 → M ICU 02-20 01:05
PROVIDERS: ADMIT Internal Medicine; ATTEND Internal Medicine
DX: I49.5 Sick sinus syndrome (principal); I16.0 Hypertensive urgency; R55 Syncope and collapse; R00.1 Bradycardia, unspecified; M48.061 Spinal stenosis, lumbar region without neurogenic claudication; M25.78 Osteophyte, vertebrae; E04.1 Nontoxic single thyroid nodule; D69.6 Thrombocytopenia, unspecified; Z79.82 Long term (current) use of aspirin; Z79.899 Other long term (current) drug therapy; R47.89 Other speech disturbances; E66.9 Obesity, unspecified
CPT/HCPCS: 36415; 70450; 70544; 70551; 71045; 71275; 74177; 80048; 82550; 82553; 83735; 84443; 84484; 85025; 85027; 85610; 85730; 86617; 86850; 86900; 86901; 93005; 93041; 93306; 93880; 94760; 96360; 96361; 99285; Q9967

== ENCOUNTER 2023-10-25 10:09 | Emergency (ER) | payer SELFPAY ==
[~2023-10-25] VITALS: Ht 162.6 cm; Wt 96.5 kg
[~2023-10-25 10:09] MED LIST: B COTAB3 PO; BAYE325T12 PO; CO Q100C PO; HYDR12CA PO; LISI2.5T9 PO
[2023-10-25 11:07] LABS: BASO # 0.1 10^3/uL (0.0-0.2); BASO % 0.4 % (0.0-1.0); EOS # 0.1 10^3/uL (0.0-0.5); EOS % 0.4 % (0.0-3.0); HEMATOCRIT 46.7 % (42.0-52.0); HEMOGLOBIN 16.1 g/dl (13.5-17.5); LYMPH # 1.5 10^3/uL (1.5-5.0); LYMPH % 12.8 % (24.0-44.0); MEAN CORPUSCULAR HEMOGLOBIN 30.8 pg (27.0-33.0); MEAN CORPUSCULAR HGB CONC 34.5 g/dl (32.0-36.5); MEAN CORPUSCULAR VOLUME 89.3 fl (80.0-96.0); MONO # 1.1 10^3/uL (0.0-0.8); MONO % 9.2 % (2.0-8.0); NEUTROPHILS % 76.4 % (36.0-66.0); PLATELET COUNT, AUTOMATED 206 10^3/uL (150-450); RED BLOOD COUNT 5.23 10^6/uL (4.30-6.10); WHITE BLOOD COUNT 11.8 10^3/uL (4.0-10.0)
[2023-10-25] MEDS: NS 500 ML IV ONE (11:15)
[2023-10-25 11:28] LABS: ALBUMIN 3.4 G/DL (3.2-5.2); ALKALINE PHOSPHATASE 64 U/L (46-116); ALT/SGPT 23 U/L (7.0-40); AST/SGOT 15 U/L (<34); BILIRUBIN,TOTAL 0.6 MG/DL (0.3-1.2); BLOOD UREA NITROGEN 17 MG/DL (9-23); CALCIUM LEVEL 9.1 MG/DL (8.3-10.6); CARBON DIOXIDE LEVEL 25 MMOL/L (20-31); CHLORIDE LEVEL 109 MMOL/L (98-107); CREATININE FOR GFR 0.99 MG/DL (0.70-1.30); GLOMERULAR FILTRATION RATE > 60.0 (>49); GLUCOSE, FASTING 123 MG/DL (74-106); POTASSIUM SERUM 3.8 MMOL/L (3.5-5.1); SODIUM LEVEL 138 MMOL/L (136-145); TOTAL PROTEIN 6.2 G/DL (5.7-8.2)
[2023-10-25 11:29] LABS: INR 1.06; PARTIAL THROMBOPLASTIN TIME 27.5 SECONDS (24.8-34.2); PROTHROMBIN TIME 13.5 SECONDS (12.5-14.5)
[2023-10-25] MEDS ORDERED: HOME MED LIST COMPLETE! XX SCH (11:30)
[2023-10-25] MEDS ORDERED: LISI10TA22 PO (11:30)
[2023-10-25] MEDS ORDERED: EQL50TAB2 PO (11:30)
[2023-10-25] MEDS: ACETAMINOPHEN 325 MG TAB PO ONE (11:51)
[2023-10-25] MEDS ORDERED: ISOVUE-370 76% 100ML VIAL As Ordered ONE (12:57)
[2023-10-25 15:16] LABS: HEMATOCRIT 36.4 % (42.0-52.0); MEAN CORPUSCULAR HEMOGLOBIN 30.9 pg (27.0-33.0); MEAN CORPUSCULAR VOLUME 93.8 fl (80.0-96.0); PLATELET COUNT, AUTOMATED 130 10^3/uL (150-450); RED BLOOD COUNT 3.88 10^6/uL (4.30-6.10); WHITE BLOOD COUNT 8.3 10^3/uL (4.0-10.0)
[2023-10-25 19:22] LABS: HEMATOCRIT 40.3 % (42.0-52.0); HEMOGLOBIN 13.8 g/dl (13.5-17.5); MEAN CORPUSCULAR HEMOGLOBIN 30.9 pg (27.0-33.0); MEAN CORPUSCULAR HGB CONC 34.2 g/dl (32.0-36.5); MEAN CORPUSCULAR VOLUME 90.2 fl (80.0-96.0); PLATELET COUNT, AUTOMATED 172 10^3/uL (150-450); RED BLOOD COUNT 4.47 10^6/uL (4.30-6.10); WHITE BLOOD COUNT 9.9 10^3/uL (4.0-10.0)
[2023-10-25 22:30] VITALS: BP 126/77; TEMP 97.7; O2SAT 98
== END 2023-10-25 23:22 | disposition other institution (70) ==
LOC: M ED 10:09 → EDBD 10:09 → M ED 23:22
DX: R55 Syncope and collapse (principal); K92.2 Gastrointestinal hemorrhage, unspecified; I10 Essential (primary) hypertension
CPT/HCPCS: 36415; 71045; 74174; 80047; 80053; 85025; 85027; 85610; 85730; 86850; 86900; 86901; 93005; 93041; 94760; 99285; Q9967